=== PATIENT | male | born 1980 | race Caucasian/White ===

== ENCOUNTER 2018-06-03 14:09 | Emergency (ER) | payer OTHER, SELFPAY ==
--- NOTE | 2018-06-03 14:36 | ED PDOC ---
HPI: Fever Fever Onset Was: 05/31/18 Additional Comments: 37 y/o male presents to the ED complaining of fever associated with myalgia, headache, and posterior neck pain with flexion, onset three days ago. Denies taking medications for symptom relef, cough, sore throat , ear pain, abdominal pain and dysuria. Past Medical History Reviewed: Historical Data, Nursing Documentation, Vital Signs Vital Signs: Last Vital Signs Temp 102.8 F H 06/03/18 15:00 Pulse 79 06/03/18 14:22 Resp 16 06/03/18 14:22 BP 119/68 06/03/18 14:22 Pulse Ox 99 06/03/18 15:10 - Medical History PMH: No Chronic Diseases - Surgical History Surgical History: No Surg Hx - Family History Family History: States: Unknown Family Hx - Home Medications Home Medications: Ambulatory Orders Medication Instructions Recorded Amoxicillin/Clavulanate [Augmentin 1 tab PO BID #14 tab 09/08/14 875 MG-125 MG] Meclizine Hydrochloride [Meclizine] 50 mg PO BID PRN #30 tab 09/08/14 Azithromycin [Zithromax] 250 mg PO DAILY #4 tab 06/03/18 - Allergies Allergies/Adverse Reactions: Allergies Allergy/AdvReac Type Severity Reaction Status Date / Time No Known Allergies Allergy Verified 06/03/18 14:22 Review of Systems ROS Statement: Except As Marked, All Systems Reviewed And Found Negative Constitutional: Positive for: Fever, Other ENT: Negative for: Ear Pain, Throat Pain Respiratory: Negative for: Cough Gastrointestinal: Negative for: Abdominal Pain Genitourinary Male: Negative for: Dysuria Musculoskeletal: Positive for: Neck Pain (posterior neck pain on flexion) Neurological: Positive for: Headache Physical Exam - Reviewed Nursing Documentation Reviewed: Yes Vital Signs Reviewed: Yes - Physical Exam Appears: Positive for: No Acute Distress Head Exam: Positive for: ATRAUMATIC Skin: Positive for: Normal Color, Warm Eye Exam: Positive for: Normal appearance ENT: Positive for: Normal ENT Inspection Neck: Positive for: Normal, Supple Cardiovascular/Chest: Positive for: Regular Rate, Rhythm Respiratory: Positive for: Normal Breath Sounds. Negative for: Respiratory Distress Gastrointestinal/Abdominal: Positive for: Normal Exam, Soft. Negative for: Tenderness Extremity: Positive for: Normal ROM. Negative for: Deformity Neurologic/Psych: Positive for: Alert, Oriented. Negative for: Motor/Sensory Deficits - Laboratory Results Result Diagrams: 06/03/18 15:12 06/03/18 15:12 - ECG O2 Sat by Pulse Oximetry: 99 (RA) Pulse Ox Interpretation: Normal Medical Decision Making Medical Decision Making: Time: 1443 Plan: -- VBG Shock Panel -- CMP -- CBC With differentials -- CXR Two Views -- Sodium Chloride IV 1000 mls/hr -- Tylenol 975 mg PO -- Blood Culture -- Urine Culture -- Urinalysis CXR RESULTS IMPRESSION: Oval masslike infiltrate posterior right lower lobe -follow-up to resolution recommended. Scoliosis and thoracic spondylosis. Other osseous findings as above (+) infiltrate on CXR. Labs normal. VBG normal. IV antibiotics given. Scribe Attestation: Documented by Dano Sewell, acting as a scribe for Constance Barillas PA-C. Provider Scribe Attestation: All medical record entries made by the Scribe were at my direction and personally dictated by me. I have reviewed the chart and agree that the record accurately reflects my personal performance of the history, physical exam, medical decision making, and the department course for this patient. I have also personally directed, reviewed, and agree with the discharge instructions and disposition. Disposition - Clinical Impression Clinical Impression: Community acquired pneumonia - Patient ED Disposition Is Patient to be Admitted: No Counseled Patient/Family Regarding: Diagnosis, Need For Followup, Rx Given - Disposition Referrals: [facility] [Outside] [facility] [Outside] Disposition: Routine/Home Disposition Time: 17:21 Condition: GOOD Additional Instructions: Please follow-up with a PMD or at the clinic in 2-3 days. Prescriptions: Azithromycin [Zithromax] 250 mg PO DAILY #4 tab Instructions: Pneumonia in Adults Forms: [employer] ([employer])
--- NOTE | 2018-06-03 15:04 | RAD ---
Date of service: 06/03/2018 HISTORY: fever COMPARISON: No prior. TECHNIQUE: Chest PA and lateral FINDINGS: LUNGS: An oval opacity compatible with a posterior right lower lobe infiltrate given the clinical context is present. Follow-up to resolution recommended. PLEURA: No significant pleural effusion identified. No pneumothorax apparent. CARDIOVASCULAR: Normal. OSSEOUS STRUCTURES: Thoracic spondylosis and scoliosis. Generalized osteopenia and mild minimal mid thoracic degenerative type wedging. VISUALIZED UPPER ABDOMEN: Normal. OTHER FINDINGS: None. IMPRESSION: Oval masslike infiltrate posterior right lower lobe -follow-up to resolution recommended. Scoliosis and thoracic spondylosis. Other osseous findings as above
[2018-06-03] MEDS: Sodium Chloride 0.9% 1,000 ML IV STA (15:13)
[2018-06-03 15:14] LABS: VENOUS BLOOD GAS BASE EXCESS 3.7 mmol/L (0.0-2.0); VENOUS BLOOD GAS PCO2 39 mmHg (40-60); VENOUS BLOOD GAS PO2 37 mm/Hg (30-55); VENOUS BLOOD PH 7.46 (7.32-7.43)
[2018-06-03 15:18] LABS: BASO % 0.3 % (0.0-2.0); EOS % 0.2 % (0.0-4.0); HEMOGLOBIN 15.1 g/dL (12.0-18.0); LYMPH # 1.1 K/uL (1.0-4.3); MEAN CELL VOLUME 89.8 fl (80.0-94.0); MEAN CORPUSCULAR HEMOGLOBIN 31.5 pg (27.0-31.0); MEAN CORPUSCULAR HGB CONC 35.1 g/dL (33.0-37.0); MEAN PLATELET VOLUME 8.5 fl (7.2-11.7); MONO # 0.6 K/uL (0.0-0.8); MONO % 8.6 % (0.0-10.0); NEUT # 4.9 K/uL (1.8-7.0); NEUT % 73.9 % (50.0-75.0); RBC 4.79 Mil/uL (4.40-5.90); RED CELL DISTRIBUTION WIDTH 12.7 % (11.5-14.5); WHITE BLOOD COUNT 6.6 K/uL (4.8-10.8)
[2018-06-03 15:29] LABS: ALB/GLOB RATIO 1.3 (1.0-2.1); ALBUMIN 4.3 g/dL (3.5-5.0); ALT/SGPT 46 U/L (21-72); AST/SGOT 38 U/L (17-59); BLOOD UREA NITROGEN 13 mg/dl (9-20); CALCIUM 9.1 mg/dL (8.4-10.2); GFR AFRICAN-AMERICAN > 60; GFR NON-AFRICAN AMERICAN > 60
[2018-06-03 15:38] LABS: URINE BILIRUBIN NEGATIVE (NEGATIVE); URINE BLOOD NEGATIVE (NEGATIVE); URINE CLARITY SLIGHTY-CLOUDY (Clear); URINE COLOR YELLOW (YELLOW); URINE GLUCOSE (UA) NEG (Normal); URINE LEUKOCYTE ESTERASE NEG Leu/uL (Negative); URINE PROTEIN NEGATIVE (NEGATIVE)
[2018-06-03] MEDS ORDERED: Azithromycin 500 MG IV IVPB ONE (16:07)
[2018-06-03] MEDS ORDERED: cefTRIAXone (Rocephin) 1 gm Inj ONE (16:07)
[2018-06-03] MEDS: Azithromycin 500 MG in Sodium Chloride 0.9% 250 ML IVPB STA (17:25)
[2018-06-03 18:28] VITALS: BP 102/67; PULSE 67; RESP 19; TEMP 99.1; O2SAT 98
== END 2018-06-03 19:06 | disposition home or self-care (01) ==
LOC: H.ER 14:09
DX: J18.9 Pneumonia, unspecified organism (principal)
CPT/HCPCS: 71046; 80053; 81003; 82803; 85025; 87040; 87086; 96365; 99283; J0456; J0696; J7030